=== PATIENT | male | born 1995 | race Caucasian/White ===

== ENCOUNTER 2017-09-03 18:44 | Emergency (ER) | payer SELFPAY ==
[2017-09-03 18:47] VITALS: TEMP 99.1; BMI 30.7
[2017-09-03] MEDS ORDERED: morphine CARPU-JECT 4 MG/1 ML DISP.SYRIN IVPUSH ONE (20:13)
[2017-09-03] MEDS ORDERED: SODIUM CHLORIDE 500 ML IV STA (20:13)
[2017-09-03] MEDS ORDERED: ONDANSETRON 4 MG/2 ML VIAL IVPB ONE (20:13)
--- NOTE | 2017-09-03 20:20 | PDOC ---
History of Present Illness - General Chief Complaint: Pain, Acute Stated Complaint: FLANK PAIN Time Seen by Provider: 09/03/17 20:04 History Source: Patient, Timber Sizer Used Exam Limitations: Language Barrier - History of Present Illness Travel History: No Initial Comments: 09/03/17 20:15 22yo Male patient with no significant past medical history presents to ED c/o Rt flank pain radiating to groin with pain on urination. Patient states symptoms began this afternoon with associated diarrhea x 4, and urinary frequency. He denies n/v, fever, hematuria, dysuria, rectal bleeding or any other complaints at this time. Timing/Duration: reports: constant. denies: getting worse, changing over time, intermittent, resolved prior to arrival, gone now, other Quality: reports: moderate. denies: mild, severe, aching, burning, cramping, dullness, fullness, sharpness, stabbing, throbbing, other Abdominal Pain Onset Location: reports: flank. denies: RUQ, LUQ, RLQ, LLQ, epigastric, periumbilical, suprapubic, generalized abdomen, unknown, other Pain Radiation: reports: groin. denies: no radiation, RUQ, LUQ, RLQ, LLQ, epigastric, periumbilical, flank, scapula, shoulder, chest, back, other Activities at Onset: reports: no specific activity. denies: none, exertion, emotional upset, rest, sleep, eating, working, sexual intercourse, other Treatment Prior to Arrive: worse with: analgesics, antacids, cold pack, heat, laxative, enema, other Past History - Travel Traveled outside of the country in the last 30 days: No Close contact w/someone who was outside of country & ill: No - Past Medical History Allergies/Adverse Reactions: Allergies Allergy/AdvReac Type Severity Reaction Status Date / Time No Known Allergies Allergy Verified 09/03/17 18:47 Home Medications: Ambulatory Orders Acetaminophen [Tylenol .Extra-Strength -] 500 mg PO AM 09/26/15 Ibuprofen [Motrin -] 600 mg PO QID #28 tablet 09/26/15 Cyclobenzaprine HCl [Flexeril 10 mg] 10 mg PO Q8H PRN #15 tablet 09/04/17 Ibuprofen 600 mg PO Q6H PRN #20 tablet 09/04/17 Other medical history: DENIES - Immunization History Immunization Up to Date: No - Suicide/Smoking/Psychosocial Hx Smoking History: Never smoked Have you smoked in the past 12 months: No Hx Alcohol Use: No Drug/Substance Use Hx: No Substance Use Type: None Abd/GI Specific PMHX - Complaint Specific PMHX Colitis: No Diverticulitis: No Gall Bladder Disease: No GERD: No Hepatitis: No Irritable Bowel Synd (IBS): No Pancreatitis: No GI Ulcer Disease: No Review of Systems - Review of Systems Able to Perform ROS?: Yes Is the patient limited Cameroonian proficient: No ABD/GI: No: Nausea, Poor Appetite, Poor Fluid Intake, Rectal Bleeding, Vomiting , Abdominal cramping : Yes: Frequency, Flank Pain, Pain, Testicular Pain. No: Burning, Dysuria, Discharge, Hematuria, Urgency, Testicular Mass, Testicular Swelling Musculoskeletal: Yes: Back Pain. No: Muscle Pain, Muscle Weakness All Other Systems: Reviewed and Negative *Physical Exam - Vital Signs Last Vital Signs Temp Pulse Resp BP Pulse Ox 99.1 F 81 19 123/88 99 09/03/17 18:46 09/03/17 18:46 09/03/17 18:46 09/03/17 18:46 09/03/17 18:46 - Physical Exam General Appearance: Yes: Nourished, Appropriately Dressed, Apparent Distress, Mild Distress. No: Moderate Distress, Severe Distress Respiratory/Chest: positive: Lungs Clear, Normal Breath Sounds. negative: Chest Tender, Respiratory Distress, Accessory Muscle Use, Labored Respiration, Rapid RR Cardiovascular: positive: Regular Rhythm, Regular Rate Gastrointestinal/Abdominal: positive: Normal Bowel Sounds, Tender, Soft, Tenderness (RLQ). negative: Distended, Guarding, Rebound Male Genitalia: positive: normal genitalia, testicular tenderness (Right testicle ). negative: discharge, testicular mass, epididymus tender, inguinal hernia, hematuria Musculoskeletal: positive: Normal Inspection, CVA Tenderness, CVA Tenderness (R) . negative: CVA Tenderness (L), Decreased Range of Motion, Vertebral Tenderness Extremity: positive: Normal Capillary Refill, Normal Inspection, Normal Range of Motion. negative: Pedal Edema, Swelling, Calf Tenderness, Erythema, Inflammation Integumentary: positive: Normal Color, Dry, Warm Neurologic: positive: strong nitric operator II-XII NML intact, Fully Oriented, Alert, Normal Mood/ Affect, Normal Response, Motor Strength 03/29 ED Treatment Course - LABORATORY CBC & Chemistry Diagram: 09/03/17 20:21 09/03/17 20:21 - RADIOLOGY Radiology Studies Ordered: Category Date Time Status ABDOMEN & PELVIS CT WITH CONTR [CT] Stat CT Scan 09/03/17 20:13 Ordered SCROTUM AND CONTENTS US [US] Stat Ultrasound 09/03/17 20:13 Ordered Medical Decision Making - Medical Decision Making 09/04/17 00:21 Patient reports feeling much better. No pain at this time. CT/Abd Pelvis: WNL, Ultrasound: WNL UA, CBC (leukocytosis), CMP: WNL. Otherwise unremarkable work- up. 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 Patient needs referral to PCP. Will d/c home on antiinflammatory and muscle relaxer. *DC/Admit/Observation/Transfer Diagnosis at time of Disposition: Muscle strain Back pain Qualifiers: Back pain location: low back pain Chronicity: acute Back pain laterality: right Sciatica presence: without sciatica Qualified Code(s): M54.5 - Low back pain; M54.5 - Low back pain - Discharge Dispostion Disposition: HOME Condition at time of disposition: Improved Admit: No - Prescriptions Prescriptions: Cyclobenzaprine HCl [Flexeril 10 mg] 10 mg PO Q8H PRN #15 tablet PRN Reason: Back Pain Ibuprofen 600 mg PO Q6H PRN #20 tablet PRN Reason: Back Pain - Referrals Referrals: Lori North MD [Staff Physician] - - Patient Instructions Printed Discharge Instructions: DI for Low Back Pain Additional Instructions: Seguimiento con el Dr. North para establecer el cuidado. Llame para programar mary esta semana. [place] los medicamentos segn lo prescrito. He enviado yury medicamentos a more[place] farmacia. [place] duchas calientes, descanse y regrese al servicio de urgencias si yury sntomas empeoran o cualquier preocupacin por gabo evaluacin ms unda. Follow up with Dr. North to establish care. Call to schedule appointment this week. Take medications as prescribed. I have sent your medications to your pharmacy. Take warm showers, rest and return to emergency department if your symptoms worsen or any concerns for further evaluation. Print Language: ZIMBABWEAN
[2017-09-03] MEDS ORDERED: ONDANSETRON 4 MG/2 ML VIAL ONE (20:35)
[2017-09-03] MEDS ORDERED: morphine CARPU-JECT 10 MG/1 ML DISP.SYRIN ONE (20:35)
--- NOTE | 2017-09-03 20:39 | PDOC ---
*Physical Exam - Vital Signs Last Vital Signs Temp Pulse Resp BP Pulse Ox 99.1 F 81 19 123/88 99 09/03/17 18:46 09/03/17 18:46 09/03/17 18:46 09/03/17 18:46 09/03/17 18:46 ED Treatment Course - LABORATORY CBC & Chemistry Diagram: 09/03/17 20:21 09/03/17 20:21 Medical Decision Making - Medical Decision Making 09/03/17 20:39 agree with care from DEVELOPMENT EXECUTIVE Shravan *DC/Admit/Observation/Transfer Diagnosis at time of Disposition: Back pain, Muscle strain - Prescriptions Prescriptions: Cyclobenzaprine HCl [Flexeril 10 mg] 10 mg PO Q8H PRN #15 tablet PRN Reason: Back Pain Ibuprofen 600 mg PO Q6H PRN #20 tablet PRN Reason: Back Pain - Referrals Referrals: Lori North MD [Staff Physician] - - Patient Instructions Printed Discharge Instructions: DI for Low Back Pain Additional Instructions: Seguimiento con el Dr. North para establecer el cuidado. Llame para programar mary esta semana. [place] los medicamentos segn lo prescrito. He enviado yury medicamentos a [place] farm[place]. [place] duchas calientes, descanse y regrese al servicio de urgencias si yury sntomas empeoran o cualquier preocupacin por gabo evaluacin ms profunda. Follow up with Dr. North to establish care. Call to schedule appointment this week. Take medications as prescribed. I have sent your medications to your pharmacy. Take warm showers, rest and return to emergency department if your symptoms worsen or any concerns for further evaluation. Print Language: WALLISIAN
[2017-09-03 20:41] LABS: BASOPHIL 0.7 % (0-2.0); EOSINOPHIL 4.4 % (0-4.5); MCH 28.3 pg (25.7-33.7); MCHC 33.2 g/dl (32.0-35.9); MEAN CELL VOLUME 85.1 fl (80-96); MEAN PLT VOLUME 8.3 fl (7.5-11.1); NEUTROPHILS 56.7 % (42.8-82.8); PLATELET COUNT 239 K/MM3 (134-434); RDW 13.8 % (11.9-15.9)
[2017-09-03 20:43] LABS: URINE APPEARANCE CLEAR; URINE BILIRUBIN NEGATIVE (NEGATIVE); URINE BLOOD NEGATIVE (NEGATIVE); URINE COLOR LTYELLOW; URINE GLUCOSE (UA) NEGATIVE (NEGATIVE); URINE KETONE NEGATIVE (NEGATIVE); URINE NITRITE NEGATIVE (NEGATIVE); URINE PROTEIN NEGATIVE (NEGATIVE); URINE UROBILINOGEN NEGATIVE mg/dL (0.2-1.0)
[2017-09-03 21:03] LABS: ALBUMIN 4.7 g/dl (3.4-5.0); ALK PHOS 106 U/L (45-117); ANION GAP 7 (8-16); BILIRUBIN,TOTAL 0.3 mg/dL (0.2-1.0); CALCIUM 9.4 mg/dL (8.5-10.1); CO2 29 mmol/L (21-32); CREATININE 0.9 mg/dL (0.7-1.3); GLUCOSE,RANDOM 86 mg/dL (74-106); SGOT/AST 26 U/L (15-37); SGPT/ALT 31 U/L (12-78); TOT PROT 7.9 g/dl (6.4-8.2)
[2017-09-04 01:41] VITALS: BP 146/72; PULSE 75
[2017-09-04 07:59] LABS: URINE LEUK ESTERASE Negative (NEGATIVE)
== END 2017-09-04 01:41 | disposition home or self-care (01) ==
LOC: JER 18:44
PROC: 3E033NZ Introduction of Analgesics, Hypnotics, Sedatives into Peripheral Vein, Percutaneous Approach (ICD-10-PCS; principal; 2017-09-03)
PROC: 3E033GC Introduction of Other Therapeutic Substance into Peripheral Vein, Percutaneous Approach (ICD-10-PCS; 2017-09-03)
PROC: 3E0337Z Introduction of Electrolytic and Water Balance Substance into Peripheral Vein, Percutaneous Approach (ICD-10-PCS; 2017-09-03)
DX: X58.XXXA Exposure to other specified factors, initial encounter (principal); S39.011A Strain of muscle, fascia and tendon of abdomen, initial encounter; Y93.9 Activity, unspecified; Y92.9 Unspecified place or not applicable; M54.5 Low back pain
CPT/HCPCS: 36415; 74177-TC; 76870-TC; 80053; 81003; 85025; 87086; 99282-25

== ENCOUNTER 2020-06-08 20:16 | Emergency (ER) | payer OTHER ==
--- NOTE | 2020-06-08 20:23 | PDOC ---
Rapid Medical Evaluation Chief Complaint: Pain, Acute Time Seen by Provider: 06/08/20 20:18 Medical Evaluation: Allergies Allergy/AdvReac Type Severity Reaction Status Date / Time No Known Allergies Allergy Verified 09/03/17 18:47 06/08/20 20:20 25 year old male no pmhx presenting to the ED with LLQ pain since 2pm with associated nausea, no vomiting, diarrhea or constipation. Not associated with food. Denies fever chill vomiting PE: Chest RRR CTA Abdomen ttp to LLQ without rebound Plan Labs GI cocktail Pt to precede to ED for further eval and management at the discretion of the ED provider Discharge Disposition - Referrals Referrals: Isabella Koo MD [Primary Care Provider] - - Patient Instructions - Post Discharge Activity
[2020-06-08 20:24] VITALS: BMI 28.6
[2020-06-08] MEDS ORDERED: MAG HYDROX/AL HYDROX/SIMETH 30 ML UNIT-DOSE CUP PO ONE (20:26)
[2020-06-08] MEDS ORDERED: PANTOPRAZOLE SODIUM 40 MG VIAL IVPUSH ONE (20:26)
[2020-06-08] MEDS ORDERED: ACETAMINOPHEN 500 MG TABLET (FP) PO ONE (20:56)
[2020-06-08] MEDS ORDERED: KETOROLAC TROMETHAMINE 30 MG/1 ML VIAL IVPUSH ONE (21:02)
[2020-06-08] MEDS ORDERED: SODIUM CHLORIDE 0.9% 500 ML INFUS.BAG IV ONE (21:02)
--- NOTE | 2020-06-08 21:04 | PDOC ---
History of Present Illness - General Chief Complaint: Pain, Acute Stated Complaint: STOMACH PAIN Time Seen by Provider: 06/08/20 20:18 History Source: Patient Exam Limitations: No Limitations - History of Present Illness Initial Comments: 06/08/20 20:59 25M w/o PMH p/w moderate sharp constant left flank and LLQ pain with associated left testicular pain x1 day. no f/c, n/v, ANY. has had similar episodes in the past w/o definitive dx. denies cough, sob. +pleuritic cp only on deep inspiration. sexually active in monogamous relationship. NKDA. Denies etoh, tobacco, substances. Past History - Medical History Allergies/Adverse Reactions: Allergies Allergy/AdvReac Type Severity Reaction Status Date / Time No Known Allergies Allergy Verified 06/08/20 20:24 Home Medications: Ambulatory Orders Acetaminophen [Tylenol .Extra-Strength -] 500 mg PO AM 09/26/15 Ibuprofen [Motrin -] 600 mg PO QID #28 tablet 09/26/15 Cyclobenzaprine HCl [Flexeril 10 mg] 10 mg PO Q8H PRN #15 tablet 09/04/17 Ibuprofen 600 mg PO Q6H PRN #20 tablet 09/04/17 - Immunization History Immunization Up to Date: No - Psycho-Social/Smoking History Smoking History: Never smoked Have you smoked in the past 12 months: No - Substance Abuse Hx (Audit-C & DAST Scrn) How often the patient has a drink containing alcohol: Never Score: In Men: 4 or > Positive; In Women: 3 or > Positive: 0 Screen Result (Pos requires Nsg. Audit-10AR): Negative Review of Systems - Review of Systems Comments:: 06/09/20 06:05 CONSTITUTIONAL: Denies F / C HEENT: Denies headache, lightheadedness, dizziness, changes in vision / hearing, diplopia, blurry vision, sore throat, rhinorrhea RESP: Denies SOB, cough, orthopnea, RDZ CARD: +pleuritic / deep inspiratory chest pain GI: + left flank and LLQ pain. Denies N / V / D, bloody stool, inability to tolerate PO : + left testicular pain, +dysuria. NEURO: Denies numbness, tingling, weakness MSK: Denies back pain SKIN: Denies rashes *Physical Exam - Vital Signs Last Vital Signs Temp Pulse Resp BP Pulse Ox 98.7 F 88 20 129/83 98 06/08/20 20:19 06/08/20 20:19 06/08/20 20:19 06/08/20 20:19 06/08/20 20:19 - Physical Exam 06/09/20 06:05 GEN: Well appearing, NAD, comfortable. AAOx3. HEENT: NC/AT, EOMI, PERRL. No facial asymmetry. Moist mucous membranes. Normal voice. Supple neck w/ FROM. CV: +reproducible TTP left pectoralis. S1/S2, RRR, no m/r/g LUNG: CTAB, no wheezes, crackles, rales, rhonchi. GI: +L CVAT. + LLQ. Soft, nondistented, +BS, no guarding, no rebound. : +TTP of the left scrotum / testis; no horizontal lay. No scrotal or penile swelling. No erythema. No hernias or testicular masses palpated. Patient is not circumcised. No bleeding or discharge at meatus. MSK: No LE edema. No obvious deformities of all extremities. SKIN: Warm, dry, no rashes appreciated. PSYCH: Normal mood and affect. NEURO: Moving all extremities well. ambulates w/ normal gait. ED Treatment Course - LABORATORY CBC & Chemistry Diagram: 06/08/20 21:52 06/08/20 21:52 Medical Decision Making - Medical Decision Making 06/09/20 06:05 25M w/ LLQ, L flank, and L testicular pain since 2pm today. DDX - stone, UTI, Gn/Ch, epididmitis, lower concern for testicular torsion. spiral CT scrotal/testicular US toradol fluids labs urine 06/08/20 23:46 patient has symptomatic relief s/p meds labs reviewed no acute pathology on CT IOC US REPORT: EXAM: SCROTUM AND CONTENTS US HISTORY: Left testicular pain COMPARISON: None. FINDINGS: The testicles are normal in size and echogenicity. Symmetric flow to both testicles on color Doppler evaluation with normal kay rial and venous waveforms bilaterally No intra-or extratesticular masses The right and left epididymis are normal in size with homogeneous echotexture No hydroceles or varicoceles THIS DOCUMENT HAS BEEN ELECTRONICALLY SIGNED Lucho Steward MD 06/08/2020 23:37 EST 06/09/20 00:01 results, follow up, and return precautions provided to the patient notified of one pending result all questions and concerns addressed dc home Discharge - Discharge Information Problems reviewed: Yes Clinical Impression/Diagnosis: Left flank pain, Testicular pain, left Condition: Stable Disposition: HOME - Admission No - Follow up/Referral Referrals: Isabella Koo MD [Primary Care Provider] - Brandon Hutchison MD [Staff Physician] - - Patient Discharge Instructions Patient Printed Discharge Instructions: DI for Flank Pain Additional Instructions: Take Tylenol as directed on the label for pain. Continue your home medications as prescribed. Your ultrasound and CAT scans were reassuring; reports of both were provided to you. Follow up with your Primary Care Doctor regarding this ED visit in the next 5-7 days. Follow up with urology in the next 5-10 days. We referred to you to Dr. Hutchison, you can call the number attached to schedule an appointment. Return to the nearest Emergency Department if you experience new or worsening symptoms ----- Lopeno Tylenol ted se indica en la etiqueta para el dolor. [place] yury medicamentos caseros segn lo prescrito. Cat ultrasonido y tomografas computarizadas fueron tranquilizadores; Se le proporcionaron informes de ambos. Ghulam un seguimiento con cat mdico de atencin primaria con respecto a esta visita al [place] en los prximos 5-7 rob. Ghulam un seguimiento con urologa en los prximos 5-10 rob. Nos referimos a usted al Dr. Hutchison, puede llamar al nmero adjunto para programar gabo mary. Regrese al departamento de emergencias [place] si experimenta sntomas nuevos o que empeoran Print Language: [place] - Post Discharge Activity Work/Back to School Note: Back to Work
--- NOTE | 2020-06-08 21:55 | PDOC ---
Documentation entered by Terrance Grove SCRIBE, acting as scribe for Thu Garcia DO. Thu Garcia DO: This documentation has been prepared by the Марина lopez Nirvannie, SCRIBE, under my direction and personally reviewed by me in its entirety. I confirm that the documentation accurately reflects all work, treatment, procedures, and medical decision making performed by me. Attending Attestation - Resident Resident Name: Kevin Wu - ED Attending Attestation I have performed the following: I have examined & evaluated the patient, The case was reviewed & discussed with the resident, I agree w/resident's findings & plan, Exceptions are as noted - HPI HPI: 06/08/20 21:51 The patient is a 25 year old male with no significant past medical history who presents to the ED with sharp, constant left flank and LLQ abdominal pain with associated left-sided testicular pain. Allergies: NKDA Primary Care Physician: Dr. Isabella Koo - Physicial Exam PE: 06/08/20 22:21 Constitutional: Awake, alert, oriented. No acute distress. Head: Normocephalic. Atraumatic Eyes: PERRL. EOMI. Conjunctivae are not pale. ENT: Mucous membranes are moist and intact. Posterior pharynx without exudates or erythema. Uvula midline. Neck: Supple. Full ROM. No lymphadenopathy. Cardiovascular: Regular rate. Regular rhythm. S1, S2 regular. Distal pulses are 2+ and symmetric. Pulmonary/Chest: No evidence of respiratory distress. Clear to auscultation bilaterally No wheezing, rales or rhonchi. Abdominal: Soft and non-distended. +Suprapubic tenderness. No rebound, guarding or rigidity. No organomegaly. No palpable masses. Good bowel sounds. Back: +L CVA tenderness. Penile: Per resident Dr. Almeida exam. Musculoskeletal: No edema. No cyanosis. No clubbing. Full range of motion in all extremities. No calf tenderness. Radial/pedal pulses are intact and 2+ bilaterally Skin: Skin is warm and dry. No petechiae. No purpura. Neurological: Alert and oriented to person, place, and time. Cranial nerves II-XII are grossly intact. Normal speech. Strength is grossly symmetric. No sensory deficits. Psychiatric: Good eye contact. Normal interaction, affect and behavior. - Medical Decision Making 06/08/20 21:54 a/p: 25yo male with L flank pain and L testicular pain -denies f/c -no penile discharge -no hematuria, but c/o dysuria -L testicular ttp per resident, ultrasound ordered -concern for uti, renal colic, epididymitis, hydrocele, varicocele -will send labs, ua, ucx -gc/chl -will monitor and reassess -pt is nontoxic in appearance 06/08/20 23:42 no uti labs reviewed and stable 06/08/20 23:53 normal scrotal ultrasound by [facility] pt feeling better ct neg for acute intraabd pathology stable for dc to home Discharge - Discharge Information Problems reviewed: Yes Clinical Impression/Diagnosis: Left flank pain, Testicular pain, left Condition: Stable Disposition: HOME - Admission No - Follow up/Referral Referrals: Isabella Koo MD [Primary Care Provider] - - Patient Discharge Instructions Additional Instructions: Take Tylenol as directed on the label for pain. Continue your home medications as prescribed. Your ultrasound and CAT scans were reassuring; reports of both were provided to you. Follow up with your Primary Care Doctor regarding this ED visit in the next 5-7 days. Return to the nearest Emergency Department if you experience new or worsening symptoms - Post Discharge Activity Work/Back to School Note: Back to Work
[2020-06-08 22:16] LABS: BASO % 0.4 % (0-2.0); EOS % 2.4 % (0-4.5); HEMATOCRIT 46.8 % (35.4-49); HEMOGLOBIN 15.8 GM/dL (11.7-16.9); LYMPH % 38.3 % (8-40); MCH 29.6 pg (25.7-33.7); MCHC 33.7 g/dl (32.0-35.9); MEAN CELL VOLUME 87.6 fl (80-96); MEAN PLT VOLUME 8.5 fl (7.5-11.1); MONO % 7.2 % (3.8-10.2); NEUT % 51.7 % (42.8-82.8); PLATELET COUNT 216 K/MM3 (134-434); RBC 5.35 M/mm3 (4.00-5.60); RDW 13.3 % (11.9-15.9); WHITE BLOOD COUNT 10.5 K/mm3 (4.0-10.0)
[2020-06-08] MEDS ORDERED: MAG HYDROX/AL HYDROX/SIMETH 30 ML UNIT-DOSE CUP ONE (22:20)
[2020-06-08] MEDS ORDERED: KETOROLAC TROMETHAMINE 30 MG/1 ML VIAL ONE (22:20)
[2020-06-08] MEDS ORDERED: PANTOPRAZOLE SODIUM 40 MG VIAL ONE (22:20)
[2020-06-08 22:27] LABS: ALBUMIN 4.6 g/dl (3.4-5.0); BILIRUBIN,TOTAL 0.3 mg/dL (0.2-1); BLOOD UREA NITROGEN 20.9 mg/dL (7-18); CALCIUM 9.2 mg/dL (8.5-10.1); CREATININE 0.9 mg/dL (0.55-1.3); POTASSIUM 4.2 mmol/L (3.5-5.1); TOT PROT 7.7 g/dl (6.4-8.2)
[2020-06-08] MEDS ORDERED: HYDROCORTISONE 2.5% TOPICAL CREAM 30 GM TUBE PR ONE (22:29)
[2020-06-08 22:48] LABS: PH,URINE 6.5 (5.0-8.0); URINE APPEARANCE CLEAR; URINE BILIRUBIN NEGATIVE (NEGATIVE); URINE COLOR YELLOW; URINE GLUCOSE (UA) NEGATIVE (NEGATIVE); URINE KETONE NEGATIVE (NEGATIVE); URINE LEUK ESTERASE NEGATIVE (NEGATIVE); URINE NITRITE NEGATIVE (NEGATIVE); URINE PROTEIN NEGATIVE (NEGATIVE)
[2020-06-09 00:24] VITALS: BP 128/79; PULSE 62; TEMP 97.9
== END 2020-06-09 00:35 | disposition home or self-care (01) ==
LOC: JER 20:16
PROC: 3E0333Z Introduction of Anti-inflammatory into Peripheral Vein, Percutaneous Approach (ICD-10-PCS; principal; 2020-06-08)
PROC: 3E033GC Introduction of Other Therapeutic Substance into Peripheral Vein, Percutaneous Approach (ICD-10-PCS; 2020-06-08)
DX: R10.9 Unspecified abdominal pain (principal); N50.812 Left testicular pain
CPT/HCPCS: 36415; 74176-TC; 76870-TC; 80053; 81003; 83690; 85025; 87086; 87491; 87591; 99285-25